=== PATIENT | female | born 1985 | race Caucasian/White ===

== ENCOUNTER 2023-01-10 15:26 | Inpatient (IN) | payer BC, OTHER ==
[2023-01-10 15:41] VITALS: BMI 28.3
[2023-01-10] MEDS ORDERED: SODIUM CHLORIDE 2,313 ML IV ONE (16:01)
[2023-01-10 17:01] LABS: VENOUS BASE EXCESS 1.7 mmol/L (-2-2); VENOUS O2 SATURATION 40.8 % (70-80); VENOUS PCO2 52.2 mmHg (38-52); VENOUS PH 7.353 (7.310-7.410)
[2023-01-10 17:09] LABS: BASO % 0.9 % (0-2.0); EOS % 2.1 % (0-4.5); HEMATOCRIT 41.3 % (32.4-45.2); LYMPH % 12.1 % (8-40); MCH 31.7 pg (25.7-33.7); MCHC 33.9 g/dl (32.0-36.0); MEAN CELL VOLUME 93.4 fl (80-96); MEAN PLT VOLUME 6.3 fl (7.5-11.1); MONO % 7.7 % (3.8-10.2); NEUT % 77.2 % (42.8-82.8); PLATELET COUNT 354 10^3/uL (134-434); RBC 4.42 M/mm3 (3.60-5.2); RDW 14.3 % (11.6-15.6); WHITE BLOOD COUNT 7.5 K/mm3 (4.0-10.0)
[2023-01-10 17:15] LABS: EPI CELLS 7 /uL (0-25.1); HYALINE CASTS 1 /uL (0-3.1); PH,URINE 5.5 (5.0-8.0); URINE APPEARANCE CLEAR; URINE BACTERIA 98 /uL (0-1359); URINE BILIRUBIN NEGATIVE (NEGATIVE); URINE COLOR YELLOW; URINE GLUCOSE (UA) NEGATIVE (NEGATIVE); URINE KETONE NEGATIVE (NEGATIVE); URINE LEUK ESTERASE TRACE (NEGATIVE); URINE NITRITE NEGATIVE (NEGATIVE); URINE PROTEIN NEGATIVE (NEGATIVE); URINE RBC 46 /uL (0-23.9); URINE UROBILINOGEN 0.2 mg/dL (0.2-1.0); URINE WBC 46 /uL (0-25.8)
[2023-01-10] MEDS ORDERED: ACETAMINOPHEN 1000 MG/100 ML BAG IVPB ONE (17:15)
[2023-01-10 17:22] LABS: ACTIVATED PTT 34.8 SECONDS (25.2-36.5); INR 1.15 (0.83-1.09); PROTHROMBIN TIME (PATIENT) 13.3 SEC (9.7-13.0)
[2023-01-10] MEDS ORDERED: ACETAMINOPHEN INJECTION 100 ML IVPB ONE ×2 (17:26→23:25)
[2023-01-10 17:27] LABS: CHLORIDE 105 mmol/L (98-107); POTASSIUM 4.1 mmol/L (3.5-5.1); SODIUM 141 mmol/L (136-145)
[2023-01-10 17:29] LABS: ANION GAP 7 MMOL/L (8-16); BLOOD UREA NITROGEN 13.2 mg/dL (7-18); CALCIUM 8.7 mg/dL (8.5-10.1); CO2 29 mmol/L (21-32)
[2023-01-10 17:30] LABS: GLUCOSE,RANDOM 97 mg/dL (74-106)
[2023-01-10 17:33] LABS: CREATININE 0.8 mg/dL (0.55-1.3); SGOT/AST 16 U/L (15-37); SGPT/ALT 33 U/L (13-61)
[2023-01-10 17:34] LABS: BILIRUBIN,TOTAL 0.9 mg/dL (0.2-1)
[2023-01-10 17:36] LABS: ALK PHOS 76 U/L (45-117)
[2023-01-10] MEDS ORDERED: CEFTRIAXONE 1 GM/50 ML BAG ONE (18:07)
[2023-01-10 18:39] LABS: ERYTHROCYTE SEDIMENTATION RATE 16 mm/hr (0-20)
[2023-01-10] MEDS ORDERED: ACETAMINOPHEN 1000 MG/100 ML BAG IVPB STA (22:56)
[2023-01-10] MEDS ORDERED: ACETAMINOPHEN 325 MG TABLET (FP) PO ONE (22:59)
[2023-01-10] MEDS ORDERED: ACETAMINOPHEN 325 MG TABLET (FP) PO SCH (23:02)
[2023-01-11] MEDS ORDERED: ACETAMINOPHEN 325 MG TABLET (FP) PO PRN (00:01)
[2023-01-11 08:11] LABS: BASO % 0.7 % (0-2.0); EOS % 3.3 % (0-4.5); HEMATOCRIT 40.4 % (32.4-45.2); HEMOGLOBIN 13.9 GM/dL (10.7-15.3); LYMPH % 15.9 % (8-40); MCHC 34.4 g/dl (32.0-36.0); MEAN CELL VOLUME 93.1 fl (80-96); MEAN PLT VOLUME 6.7 fl (7.5-11.1); MONO % 13.4 % (3.8-10.2); NEUT % 66.7 % (42.8-82.8); PLATELET COUNT 342 10^3/uL (134-434); RBC 4.34 M/mm3 (3.60-5.2); RDW 14.4 % (11.6-15.6)
[2023-01-11 08:21] LABS: POTASSIUM 4.3 mmol/L (3.5-5.1)
[2023-01-11 08:24] LABS: ALBUMIN 3.5 g/dl (3.4-5.0); BLOOD UREA NITROGEN 7.8 mg/dL (7-18)
[2023-01-11 08:27] LABS: CREATININE 0.7 mg/dL (0.55-1.3)
[2023-01-11 08:28] LABS: TOT PROT 6.8 g/dl (6.4-8.2)
[2023-01-11 08:29] LABS: BILIRUBIN,TOTAL 1.2 mg/dL (0.2-1)
[2023-01-11 11:08] VITALS: RESP 18
[2023-01-11] MEDS: ACETAMINOPHEN 1000 MG/100 ML BAG IVPB PRN ×2 (11:11→21:55)
[2023-01-11] MEDS: CEFTRIAXONE 1 GM in DEXTROSE 5%-WATER - 50 ML IVPB SCH (11:18)
[2023-01-11] MEDS: ASPIRIN COATED 81 MG TABLET.EC PO SCH (12:51)
[2023-01-11] MEDS: ENOXAPARIN NA (PORCINE) 40 MG/0.4 ML DISP.SYRIN SQ SCH (12:51)
[2023-01-11] MEDS: LACTATED RINGERS SOLUTION 1,000 ML/1,000 ML INFUS.BAG IV SCH (12:54)
[2023-01-12 08:08] LABS: FOLLICLE STIMULATING HORMONE 7.2 mIU/mL (.); LUTEINIZING HORMONE 11.5 mIU/mL (.)
[2023-01-12] MEDS: ENOXAPARIN NA (PORCINE) 40 MG/0.4 ML DISP.SYRIN SQ SCH (10:41)
[2023-01-12] MEDS: CEFTRIAXONE 1 GM in DEXTROSE 5%-WATER - 50 ML IVPB SCH (10:41)
[2023-01-12] MEDS: ASPIRIN COATED 81 MG TABLET.EC PO SCH (10:41)
[2023-01-12] MEDS: LACTATED RINGERS SOLUTION 1,000 ML/1,000 ML INFUS.BAG IV SCH ×2 (10:44→18:27)
[2023-01-12] MEDS ORDERED: PATIENT'S OWN MEDICATION (NON-FORMULARY) (Tizanidine Hcl [Tizanidine Hcl] 2 MG Tablet) PO PRN (14:40)
[2023-01-13] MEDS: LACTATED RINGERS SOLUTION 1,000 ML/1,000 ML INFUS.BAG IV SCH (10:35)
[2023-01-13] MEDS: ASPIRIN COATED 81 MG TABLET.EC PO SCH (10:36)
[2023-01-13] MEDS: ENOXAPARIN NA (PORCINE) 40 MG/0.4 ML DISP.SYRIN SQ SCH (10:36)
[2023-01-13] MEDS: CEFTRIAXONE 1 GM in DEXTROSE 5%-WATER - 50 ML IVPB SCH (10:36)
[2023-01-13 11:08] LABS: HEMATOCRIT 39.5 % (32.4-45.2); HEMOGLOBIN 13.5 GM/dL (10.7-15.3); MCH 31.7 pg (25.7-33.7); MCHC 34.1 g/dl (32.0-36.0); MEAN CELL VOLUME 92.9 fl (80-96); MEAN PLT VOLUME 6.4 fl (7.5-11.1); PLATELET COUNT 336 10^3/uL (134-434); RBC 4.25 M/mm3 (3.60-5.2); RDW 13.8 % (11.6-15.6); WHITE BLOOD COUNT 4.9 K/mm3 (4.0-10.0)
[2023-01-13 11:17] LABS: POTASSIUM 4.1 mmol/L (3.5-5.1)
[2023-01-13 11:21] LABS: ALBUMIN 3.3 g/dl (3.4-5.0); BLOOD UREA NITROGEN 8.8 mg/dL (7-18); CALCIUM 9.1 mg/dL (8.5-10.1)
[2023-01-13 11:25] LABS: CREATININE 0.7 mg/dL (0.55-1.3)
[2023-01-13 11:27] LABS: BILIRUBIN,TOTAL 0.7 mg/dL (0.2-1)
[2023-01-13] MEDS ORDERED: ACETAMINOPHEN 325 MG TABLET (FP) PO ONE ×2 (11:36→16:15)
[2023-01-13 14:49] VITALS: BP 163/84; PULSE 76; TEMP 98.4
== END 2023-01-13 18:42 | disposition home or self-care (01) | DRG 690 ==
LOC: JER 15:26 → JERBED 21:31 → J6S 01-11 10:28 → OBSVTOIN 01-12 10:10
PROVIDERS: ADMIT Internal Medicine; ATTEND Internal Medicine
DX: N12 Tubulo-interstitial nephritis, not specified as acute or chronic (principal); D35.2 Benign neoplasm of pituitary gland; N31.9 Neuromuscular dysfunction of bladder, unspecified; M54.50 Low back pain, unspecified
CPT/HCPCS: 0241U-QW; 36415; 71045-TC-FY; 74176-TC; 74177-TC; 80053; 81003; 82533; 82550; 82553; 82803; 83001; 83002; 83605; 84146; 84305; 84439; 84443; 84484; 84703; 85025; 85027; 85610; 85651; 85730; 86140; 86850; 86900; 86901; 87040; 87086; 93005; 93010; 99285-25; G0378; Q9967

== ENCOUNTER 2023-02-26 23:04 | Emergency (ER) | payer BC ==
[2023-02-26 23:13] VITALS: BP 127/80; PULSE 88; RESP 18; TEMP 98.7; BMI 31.2
[2023-02-26 23:55] LABS: EPI CELLS 13 /uL (0-25.1); HYALINE CASTS 1 /uL (0-3.1); PH,URINE 5.5 (5.0-8.0); URINE APPEARANCE CLEAR; URINE BACTERIA 89 /uL (0-1359); URINE BILIRUBIN NEGATIVE (NEGATIVE); URINE COLOR YELLOW; URINE GLUCOSE (UA) NEGATIVE (NEGATIVE); URINE KETONE NEGATIVE (NEGATIVE); URINE LEUK ESTERASE NEGATIVE (NEGATIVE); URINE NITRITE NEGATIVE (NEGATIVE); URINE PROTEIN NEGATIVE (NEGATIVE); URINE RBC 22 /uL (0-23.9); URINE UROBILINOGEN 0.2 mg/dL (0.2-1.0); URINE WBC 31 /uL (0-25.8)
[2023-02-27] MEDS ORDERED: LIDOCAINE HCL 2% JELLY 10 ML CARTRIDGE UR ONE (00:29)
[2023-02-27] MEDS ORDERED: CEPHALEXIN MONOHYDRATE 500 MG CAPSULE (UD) PO ONE (00:29)
[2023-02-27] MEDS ORDERED: CEPHALEXIN MONOHYDRATE 500 MG CAPSULE (UD) ONE (00:33)
[2023-02-27] MEDS ORDERED: LIDOCAINE HCL 2% JELLY 6 ML TP ONE (01:01)
[2023-02-27 02:43] LABS: HCG,QUALITATIVE URINE Negative
== END 2023-02-27 01:41 | disposition home or self-care (01) ==
LOC: JER 23:04
DX: N36.8 Other specified disorders of urethra (principal)
CPT/HCPCS: 81003; 84703; 87086; 99283-25